=== PATIENT | female | born 1985 | race Caucasian/White ===

== ENCOUNTER 2018-11-02 15:22 | Emergency (ER) | payer OTHER ==
[2018-11-02 15:37] VITALS: BP 142/96
--- NOTE | 2018-11-02 15:52 | UC ---
Back Pain HPI - HPI Summary HPI Summary: 33-year-old woman comes in with a chief complaint of low back pain. Back pain started today at work. Is worse with twisting turning bending. No abdominal pain no fevers or chills. It's lumbar region lower aspect and it does radiate into the right buttock at times. It does not radiate down the leg. No weakness or numbness. No difficulty controlling urine or bowels. Patient ibuprofen and that did not help. She has had intermittent back pain on and off for years. No dysuria. - History of Current Complaint Chief Complaint: UCBackPain Stated Complaint: BACK INJURY Time Seen by Provider: 11/02/18 15:30 Hx Last Menstrual Period: 10/10/18 Pain Intensity: 6 - Allergies/Home Medications Allergies/Adverse Reactions: Allergies Allergy/AdvReac Type Severity Reaction Status Date / Time No Known Allergies Allergy Verified 11/02/18 15:36 PMH/Surg Hx/FS Hx/Imm Hx Previously Healthy: Yes - Surgical History Surgical History: Yes Surgery Procedure, Year, and Place: oral inplants - Family History Known Family History: Positive: Unknown - Social History Alcohol Use: None Substance Use Type: None Smoking Status (MU): Never Smoked Tobacco - Immunization History Most Recent Influenza Vaccination: denied this season Most Recent Tetanus Shot: 01/08/2016 Most Recent Pneumonia Vaccination: none Review of Systems All Other Systems Reviewed And Are Negative: Yes Constitutional: Positive: Negative Skin: Positive: Negative Eyes: Positive: Negative ENT: Positive: Negative Respiratory: Positive: Negative Cardiovascular: Positive: Negative Gastrointestinal: Positive: Negative Genitourinary: Positive: Negative Motor: Positive: Negative Neurovascular: Positive: Negative Musculoskeletal: Positive: Other: - see hpi Neurological: Positive: Negative Psychological: Positive: Negative Is Patient Immunocompromised?: No Physical Exam Triage Information Reviewed: Yes Appearance: Well-Appearing, Well-Nourished, Pain Distress - mild with rom Vital Signs: Initial Vital Signs Temp 98.5 F 11/02/18 15:28 Pulse 73 11/02/18 15:28 Resp 16 11/02/18 15:28 BP 142/96 11/02/18 15:28 Pulse Ox 95 11/02/18 15:28 Vital Signs Reviewed: Yes Eye Exam: Normal Eyes: Positive: Conjunctiva Clear Neck exam: Normal Neck: Positive: Supple Respiratory: Positive: No respiratory distress Musculoskeletal: Positive: Other: - Tender to palpation mid lumbar and to the right of lower lumbar. Legs FROM with full strength. No sensation deficit. Neurological Exam: Normal Neurological: Positive: Alert, Muscle Tone Normal Psychological Exam: Normal Psychological: Positive: Age Appropriate Behavior Skin Exam: Normal Back Pain Course/Dx - Course Course Of Treatment: Patient Name: ANGELA LOCKWOOD Medical Record#: [id number] Ordering Physician: Felipe Key MD Acct.#: [id number] : 1985 Age: 33 Sex: F Location: [facility] Exam Date: 11/02/181544 ADM Status: REG ER Order Information: SP LUMBARSACRAL 4+ VWS Accession Number: [id number] CPT: 57186 INDICATION: Low back pain. COMPARISON: Comparison is made with a prior study from August 12, 2008. TECHNIQUE: 5 views of the lumbar spine were obtained including lateral, oblique , AP and a coned-down lateral view of the lumbar sacral junction. FINDINGS: The vertebra are in normal alignment. No fracture is seen. There is mild to moderate degenerative disc disease at the L3-L4, L4-L5 and L5- S1 levels which has progressed from the prior study. IMPRESSION: MILD TO MODERATE DEGENERATIVE DISC DISEASE. <Electronically signed by Manuel Millan MD in OV> 11/02/18 [id number] I discussed the x-rays with the patient. The plan at this time is ibuprofen and Flexeril as needed and rest. At this time the patient is not scheduled to go back to work until November 07, 2018. As long as the patient feels better she can go back to full duty at work on November 07, 2018. However if the patient is still having pain and it is unable to go back to work she will follow-up with occupational medicine. If that is what happened she may need a note from us for her workplace. I discussed with the patient if she gets worse with pain weakness numbness difficulty controlling urine or bowel or any other questions concern she needs to get reevaluated again right away. - Differential Dx/Diagnosis Provider Diagnosis: Low back strain Discharge - Sign-Out/Discharge Documenting (check all that apply): Patient Departure All imaging exams completed and their final reports reviewed: Yes - Discharge Plan Condition: Stable Disposition: HOME Prescriptions: Cyclobenzaprine TAB* [Flexeril 10 MG TAB*] 10 mg PO TID PRN #15 tab MDD 3 PRN Reason: Pain Patient Education Materials: Low Back Strain (ED), Lower Back Exercises (ED) Referrals: Leno Bowers MD [Medical Doctor] - Additional Instructions: FOLLOW UP WITH DR BOWERS, OCCUPATIONAL MEDICINE, IF NOT COMPLETELY IMPROVED. GET RECHECKED FOR ANY WORSENING OF YOUR CONDITION; PAIN, WEAKNESS, NUMBNESS, DIFFICULTY CONTROLLING BOWEL OR BLADDER OR QUESTIONS OR CONCERNS. - Billing Disposition and Condition Condition: STABLE Disposition: Home
== END 2018-11-02 16:48 | disposition home or self-care (01) ==
LOC: UCEAST 15:22
DX: S39.012A Strain of muscle, fascia and tendon of lower back, initial encounter (principal); X58.XXXA Exposure to other specified factors, initial encounter; Y92.9 Unspecified place or not applicable; Y99.0 Civilian activity done for income or pay
CPT/HCPCS: 72110; 99212; G0463

== ENCOUNTER 2019-10-18 14:45 | Emergency (ER) | payer OTHER ==
[2019-10-18 15:19] VITALS: BP 139/91
--- NOTE | 2019-10-18 15:33 | UC ---
Abdominal Pain Female HPI - HPI Summary HPI Summary: 34 yo with onset of abdominal pain this morning, noted soon after awakening around 7 am. She ate breakfast of protein bar and carrots which worsned her pain, felt nauseated but did not vomited. Passed one small loose stool today. Pain gradually worsening, and she has felt weak and unwell enough to leave work. Just finishing menses; takes ocp and is presently on her week off active pills. Normal bleeding pattern noted. Has felt chilled and weak, not febrile. No hx of abdominal surgeries or ovarian cysts. 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 - History of Current Complaint Chief Complaint: UCAbdominalPain Stated Complaint: ABDOMINAL PAIN Time Seen by Provider: 10/18/19 15:23 Hx Obtained From: Patient Hx Last Menstrual Period: Onset/Duration: Sudden Onset, Lasting Hours - about 8-9 Severity Initially: Moderate Severity Currently: Moderate Pain Intensity: 5 Location: Other - pain both RLQ and LLQ, with some radiation to the back. Radiates: Yes Radiates to: Back Character: Cramping, Sharp - at times Aggravating Factor(s): Movement Alleviating Factor(s): Position Associated Signs and Symptoms: Positive: Back Pain, Decreased Appetite. Negative: Diaphoresis, Fever, Constipation, Blood in Stool, Urinary Symptoms, Vaginal Discharge - Risk Factors Ectopic Risk Factor: Maternal Age ^ 30 Ovarian Torsion Risk Factor: Reproductive Age Allergies/Adverse Reactions: Allergies Allergy/AdvReac Type Severity Reaction Status Date / Time No Known Allergies Allergy Verified 10/18/19 15:19 Home Medications: Home Medications Pnv W-O Iron/FA/Calcium/B6/B12 [Bp Folinatal Plus B Tablet] 1 tab PO DAILY 10/15 [History Confirmed 10/18/19] Ibuprofen TAB* [Motrin TAB* 600 MG] 600 mg PO Q6H PRN #0 tab 03/25/16 [Rx Confirmed 10/18/19] Norgestimate-Ethinyl Estradiol [Ortho Tri-Cyclen 28 Tablet] 1 each PO DAILY [History Confirmed 10/18/19] PMH/Surg Hx/FS Hx/Imm Hx Previously Healthy: Yes - Surgical History Surgical History: Yes Surgery Procedure, Year, and Place: oral inplants - Social History Occupation: Employed Full-time Lives: With Family Alcohol Use: Rare Substance Use Type: None Smoking Status (MU): Never Smoked Tobacco - Immunization History Most Recent Influenza Vaccination: denied this season Most Recent Tetanus Shot: 01/08/2016 Most Recent Pneumonia Vaccination: none Review of Systems All Other Systems Reviewed And Are Negative: Yes Constitutional: Positive: Chills, Fatigue Skin: Positive: Negative Eyes: Positive: Negative ENT: Positive: Other - recent URI, mostly resolved symptoms Respiratory: Negative: Shortness Of Breath, Cough Cardiovascular: Negative: Palpitations, Chest Pain Gastrointestinal: Positive: Diarrhea - one loose stool today, Nausea Genitourinary: Negative: Dysuria, Hematuria, Frequency, Urgency, Abnormal Bleeding Motor: Positive: Negative Neurovascular: Positive: Negative Musculoskeletal: Positive: Negative Neurological/Mental Status: Positive: Negative Psychological: Positive: Negative Is Patient Immunocompromised?: No Physical Exam Triage Information Reviewed: Yes Appearance: Ill-Appearing - looks pale and unwell Vital Signs: Initial Vital Signs Temp 98.9 F 10/18/19 15:12 Pulse 100 10/18/19 15:12 Resp 16 10/18/19 15:12 BP 139/91 10/18/19 15:12 Pulse Ox 99 10/18/19 15:12 Eyes: Positive: Conjunctiva Clear ENT: Positive: Pharynx normal Neck: Positive: Supple, Nontender, No Lymphadenopathy Respiratory: Positive: Lungs clear, Normal breath sounds Cardiovascular: Positive: RRR, No Murmur Abdomen Description: Positive: No Organomegaly, Soft, McBurney's Point Tenderness - with voluntary guarding. Negative: CVA Tenderness (R), CVA Tenderness (L) Bowel Sounds: Positive: Absent Pelvic Exam: Positive: External Exam Normal, Speculum Exam Normal - no dishcarge , no cervical excitation, Bimanual Exam Normal - no adnexal pain, no masses felt. Diagnostics - Laboratory Lab Results: Urine HCG negative UA negative. Abd Pain Female Course/Dx - Course Course Of Treatment: Clinical exam and history concerning for appendicitis, and she agreed to go to the ER for evaluation. Instructed NPO until assessed. Elected to go by provate car rather than ambulance. - Differential Dx/Diagnosis Differential Diagnosis: Appendicitis, Irritable Bowel Syndrome, Pelvic Inflammatory Disease, Urinary Tract Infection Provider Diagnosis: Abdominal pain - Physician Notification/Consults Discussed Care of Patient With: Reyes Fink Time Discussed With Above Provider: 14:55 Discharge ED - Sign-Out/Discharge Documenting (check all that apply): Patient Departure All imaging exams completed and their final reports reviewed: No Studies - Discharge Plan Condition: Stable Disposition: HOME-RECOMMEND TO ED Referrals: Griselda Mccormack MD [Primary Care Provider] - Additional Instructions: Advised to proceed directly to the emergency room for evaluation. Advised nothing by mouth until evaluated. - Billing Disposition and Condition Condition: STABLE Disposition: Home-Recommend to ED
[2019-10-18 16:06] LABS: Influenza A Molecular Negative (Negative); Influenza B Molecular Negative (Negative)
== END 2019-10-18 16:00 | disposition home health service (06) ==
LOC: UCEAST 14:45
DX: R10.9 Unspecified abdominal pain (principal); R19.7 Diarrhea, unspecified
CPT/HCPCS: 81003; 84702; 99212; G0463

== ENCOUNTER 2019-10-18 16:42 | Emergency (ER) | payer OTHER ==
[2019-10-18 18:13] LABS: Urine Appearance Clear; Urine Bilirubin Negative (Negative); Urine Blood Negative (Negative); Urine Color Straw; Urine Glucose Negative (Negative); Urine Ketones Negative (Negative); Urine Nitrite Negative (Negative); Urine Protein Negative (Negative); Urine Specific Gravity 1.006 (1.010-1.030); Urine Urobilinogen Negative (Negative)
--- NOTE | 2019-10-18 18:15 | ED ---
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 Patient states the pain did not wake her up from her sleep. Patient reports fatigue and light headedness. She states she did not sleep well because of bad dreams. She states she has been eating small snacks throughout the day with no change in symptoms. She has not had similar symptoms in the past. No urinary or fecal dysfunction, or decreased appetite. Symptoms aggravated by nothing. Symptoms alleviated by nothing. Medications reviewed. [facility] 10/14/2019. Home Medications Medication Instructions Recorded Confirmed Type Ibuprofen TAB* [Motrin TAB* 600 MG] 600 mg PO Q6H PRN #0 tab 03/25/16 10/18/19 Rx Norgestimate-Ethinyl Estradiol 1 each PO DAILY 10/18/19 10/18/19 History [Ortho Tri-Cyclen 28 Tablet] - History of Current Complaint Chief Complaint: EDAbdPain Stated Complaint: ABD PAIN PER PT Time Seen by Provider: 10/18/19 18:04 Hx Obtained From: Patient Hx Last Menstrual Period: 10/14/2019 Onset/Duration: Lasting Hours - 0600 10/18/2019, Still Present Timing: Intermittent Episode Lasting Severity Currently: Moderate Pain Intensity: 5 Pain Scale Used: 0-10 Numeric Location: Umbilical Character: Dull Aggravating Factor(s): Nothing Alleviating Factor(s): Nothing Associated Signs and Symptoms: Positive: Negative - urinary or fecal dysfunction , decreased appetite, Other: - fatigue, light headedness Allergies/Adverse Reactions: Allergies Allergy/AdvReac Type Severity Reaction Status Date / Time No Known Allergies Allergy Verified 10/18/19 16:44 Home Medications: Home Medications Ibuprofen TAB* [Motrin TAB* 600 MG] 600 mg PO Q6H PRN #0 tab 03/25/16 [Rx Confirmed 10/18/19] Norgestimate-Ethinyl Estradiol [Ortho Tri-Cyclen 28 Tablet] 1 each PO DAILY [History Confirmed 10/18/19] PMH/Surg Hx/FS Hx/Imm Hx Endocrine/Hematology History: Denies: Hx Diabetes, Hx Thyroid Disease Cardiovascular History: Denies: Hx Hypertension Respiratory History: Denies: Hx Asthma, Hx Chronic Obstructive Pulmonary Disease (COPD) GI History: Denies: Hx Ulcer Sensory History: Reports: Hx Contacts or Glasses Opthamlomology History: Reports: Hx Contacts or Glasses - Surgical History Surgery Procedure, Year, and Place: oral inplants. wisdom teeth Infectious Disease History: No Infectious Disease History: Denies: Hx Hepatitis, Hx Human Immunodeficiency Virus (HIV), Traveled Outside the [place] in Last 30 Days - Family History Known Family History: Positive: Hypertension, Respiratory Disease - asthma, Other - breast cancer - Social History Alcohol Use: Rare Substance Use Type: Reports: None Hx Tobacco Use: No Smoking Status (MU): Never Smoked Tobacco Review of Systems Positive: Fatigue Gastrointestinal: Negative - fecal dysfunction, decreased appetite Positive: Abdominal Pain Genitourinary: Negative - urinary dysfunction Neurological/Mental Status: Other - light headedness All Other Systems Reviewed And Are Negative: Yes Physical Exam - Summary Physical Exam Summary: Appearance: The patient is well-nourished in no acute distress and in no acute pain. Skin: The skin is warm and dry, and skin color reflects adequate perfusion. HEENT: The head is normocephalic and atraumatic. The pupils are equal and reactive. The conjunctivae are clear and without drainage. Nares are patent and without drainage. Mouth reveals moist mucous membranes, and the throat is without erythema and exudate. The external ears are intact. The ear canals are patent and without drainage. The tympanic membranes are intact. Neck: The neck is supple with full range of motion and non-tender. There are no carotid bruits. There is no neck vein distension. Respiratory: Chest is non-tender. Lungs are clear to auscultation and breath sounds are symmetrical and equal. Cardiovascular: Heart is regular rate and rhythm. There is no murmur or rub auscultated. There is no peripheral edema and pulses are symmetrical and equal. Abdomen: The abdomen is soft and non-tender. There are normal bowel sounds heard in all four quadrants and there is no organomegaly palpated. Musculoskeletal: There is no back tenderness noted. Extremities are non-tender with full range of motion. There is good capillary refill. There is no peripheral edema or calf tenderness elicited. Neurological: Patient is alert and oriented to person, place and time. The patient has symmetrical motor strength in all four extremities. Cranial nerves are grossly intact. Deep tendon reflexes are symmetrical and equal in all four extremities. Psychiatric: The patient has an appropriate affect and does not exhibit any anxiety or depression. Triage Information Reviewed: Yes Vital Signs On Initial Exam: Initial Vitals Temp Pulse Resp BP Pulse Ox 98.4 F 96 15 130/96 98 10/18/19 16:43 10/18/19 16:43 10/18/19 16:43 10/18/19 16:43 10/18/19 16:43 Vital Signs Reviewed: Yes Procedures - Sedation Patient Received Moderate/Deep Sedation with Procedure: No Diagnostics - Vital Signs Vital Signs Temp Pulse Resp BP Pulse Ox 10/18/19 16:43 98.4 F 96 15 130/96 98 - Laboratory Result Diagrams: 10/18/19 18:07 10/18/19 18:07 Lab Statement: Any lab studies that have been ordered have been reviewed, and results considered in the medical decision making process. - Ultrasound Appendix Ultrasound Interpretation Completed By: Radiologist - Appendix not visualized. Acute appendicitis is not excluded. If there is continued clinical concern for appendicitis, consider CT with oral and IV contrast. ED physician has reviewed this imaging report. Transvaginal Ultrasound Interpretation Completed By: Radiologist - IMPRESSION: 1. No acute findings. Sonographically normal uterus and ovaries. 2. Incidentally noted prominent bilateral uterine vessels. ED physician has reviewed this imaging report. Re-Evaluation - Re-Evaluation First Eval Re-Evaluation Time: 19:25 Change: Improved - patient agrees to discharge Abdominal Pain Fem Course/Dx - Course Course Of Treatment: Ms. Lynn was very mildly tender in the low periumbilical area. She was nontoxic in appearance stable vitals. Labs were obtained and were unremarkable. Ultrasound of her pelvis and right lower quadrant was nondiagnostic. I think the likelihood of appendicitis is very low and recommended symptomatic treatment and watchful waiting. - Diagnoses Provider Diagnoses: Abdominal pain Discharge ED - Sign-Out/Discharge Documenting (check all that apply): Patient Departure - Discharge Plan Condition: Stable Disposition: HOME Patient Education Materials: Abdominal Pain (ED) Referrals: Griselda Mccormack MD [Primary Care Provider] - 2 Days Additional Instructions: Follow up with your primary care provider in 2-3 days. Return to the Emergency Department for new or worsening symptoms. - Billing Disposition and Condition Condition: STABLE Disposition: Home - Attestation Statements Document Initiated by Scribe: Yes Documenting Scribe: Simran Boss Provider For Whom Scribe is Documenting (Include Credential): Nikunj Rollins MD Scribe Attestation: I, Simran Boss, scribed for Nikunj Rollins MD on 10/18/19 at 2132. Scribe Documentation Reviewed: Yes Provider Attestation: The documentation as recorded by the scribe, Simran Boss accurately reflects the service I personally performed and the decisions made by me, Nikunj Rollins MD Status of Scribe Document: Viewed
[2019-10-18 18:16] LABS: ABS Eosinophils 0.1 10^3/ul (0-0.6); ABS Lymphocytes 1.2 10^3/ul (1.0-4.8); ABS Monocytes 0.4 10^3/ul (0-0.8); ABS Neutrophils 4.1 10^3/ul (1.5-7.7); Hematocrit 42 % (35-47); Hemoglobin 14.6 g/dL (12.0-16.0); Lymphocyte % 21.2 %; Mean Corpuscular HGB Conc 35 g/dL (31-36); Mean Corpuscular Hemoglobin 32 pg (27-31); Mean Corpuscular Volume 92 fL (80-97); Mean Platelet Volume 9.1 fL (7.4-10.4); Nucleated Red Blood Cells % 0.1; Platelet Count 258 10^3/uL (150-450); Red Blood Count 4.55 10^6 /uL (3.70-4.87); Red Cell Distribution Width 14 % (10-15); White Blood Count 5.8 10^3/uL (3.5-10.8)
[2019-10-18 18:34] LABS: ALT 38 U/L (7-52); AST 28 U/L (13-39); Albumin 4.6 g/dL (3.2-5.2); Albumin/Globulin Ratio 1.8 (1-3); Alkaline Phosphatase 44 U/L (34-104); Anion Gap 5 mmol/L (2-11); BUN/Creatinine Ratio 27.9 (8-20); Blood Urea Nitrogen 19 mg/dL (6-24); C Reactive Protein 1.51 mg/L (<8.01); CO2 Carbon Dioxide 26 mmol/L (22-32); Chloride 108 mmol/L (101-111); EGFR African American 119.8 (>60); Globulin 2.5 g/dL (2-4); Glucose 92 mg/dL (70-100); Potassium 3.9 mmol/L (3.5-5.0); Sodium 139 mmol/L (135-145); Total Protein 7.1 g/dL (6.4-8.9)
[2019-10-18 18:40] LABS: HCG Pregnancy < 0.60 mIU/mL
[2019-10-18 19:52] VITALS: BP 109/65
== END 2019-10-18 19:43 | disposition home or self-care (01) ==
LOC: ED 16:42
DX: R10.9 Unspecified abdominal pain (principal); R53.83 Other fatigue; Z79.3 Long term (current) use of hormonal contraceptives; R42 Dizziness and giddiness
CPT/HCPCS: 36415; 76705; 76830; 80053; 81003; 83605; 83690; 84702; 85025; 86140; 99283